=== PATIENT | female | born 1980 | race Caucasian/White ===

== ENCOUNTER 2020-10-16 15:11 | Outpatient (REF) | payer BC, SELFPAY ==
--- NOTE | 2020-10-16 15:29 | ECG_ITS ---
Test Reason : MAGNESIUM LEVEL Blood Pressure : / mmHG Vent. Rate : 085 BPM Atrial Rate : 085 BPM P-R Int : 162 ms QRS Dur : 078 ms QT Int : 380 ms P-R-T Axes : 031 -36 035 degrees QTc Int : 452 ms Normal sinus rhythm Left axis deviation Possible Anterior infarct , age undetermined ; could be from lead placement. Abnormal ECG No previous ECGs available Referred By: Kayla Erwin Electronically Signed By:MARY KAY JEREZ
[2020-10-16 17:11] LABS: Alanine Aminotransferase 11 U/L (0-31); Albumin Level 4.6 g/dL (3.5-5.0); Alkaline Phosphatase 60 U/L (39-117); Anion Gap 14 (12-20); Aspartate Amino Transferase 12 U/L (5-31); Bilirubin Total 0.3 mg/dL (0.0-1.0); Blood Urea Nitrogen 9 mg/dL (9-16); Carbon Dioxide 28 mmol/L (22-29); Chloride 103 mmol/L (96-108); Estimated Glomerular Filt Rate > 60; Glucose Random 78 mg/dL (60-115); Magnesium 2.1 mg/dL (1.6-2.6); Potassium 4.5 mmol/L (3.3-5.1); Sodium 140 mmol/L (135-145); Total Protein 6.9 g/dL (6.5-8.0)
== END 2020-10-16 15:12 | disposition home or self-care (01) ==
LOC: HO.LAB 15:11
PROVIDERS: PCP Family Medicine; Visit Provider Nurse Practitioner Psychiatric/Mental Health
DX: F33.2 Major depressive disorder, recurrent severe without psychotic features (principal)
CPT/HCPCS: 36415; 80053; 83735; 93005

== ENCOUNTER 2020-10-26 10:45 | Outpatient (RCR) | payer BC, SELFPAY ==
[2020-10-10 13:05] VITALS: BMI 25.4
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
--- NOTE | 2020-10-10 14:33 | PC.ADMIT ---
Patient is a 40 year old non-binary individual who goes by they/them pronouns. Patient reports increase in depression with passive SI and PTSD sxs. Patient is from their and moved into their own apartment in February 2020. Reports increased social anxiety and isolation and has not been able to work d/t symptoms thus is on a leave of absence from work. 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 Patient is alert and oriented x4. Calm and cooperative. Presents with depressed mood anxious affect. Reports passive SI, wishing that they would not wake up in the morning. Denied Plan or intent to kill themselve. Gave verbal permission to email them a copy of her safety plan. Patient has the crisis number if needed. Medications reconciled with patient and patient's pharmacy. Patient reports taking medications as prescribed.
--- NOTE | 2020-10-11 13:05 | PC.NURSE ---
Case opened in treatment team
--- NOTE | 2020-10-16 08:06 | PC.NURSE ---
I left a message with Corbin Guevara re need appointment for client
--- NOTE | 2020-10-16 10:46 | PC.NURSE ---
I spoke with Ammy from [facility] office. She took clients information and will call client directly to set up and appointment for medication management.
--- NOTE | 2020-10-16 14:37 | HO.PHPPROGNO ---
Subjective Subjective Date of Service: 10/16/20 Reason For Visit: CP-PTSD, Anxiety Medical Problems Affecting Mental Status: No Interim History: Azeb reports no real noticed improvement yet from recently increased Wellbutrin dose, which was increased on 10/10. We discussed several options, including waiting, or adding a low dose atypical antipsychotic. We discussed abilify, which she has taken in the past without any side effects. However, she does describe current symptoms of difficulty with sleep related to her anxiety, as well as reduced appetite related to the Wellbutrin. Seroquel was discussed, and she was in agreement to trying a low dose of 50mg at bedtime. It was explained that seroquel can be used as an adjunctive medication along with the antidepressants, and that it can also improve both sleep and appetite. No thoughts of self harm / SI. She would appreciate a note from this provider for short-term disability, stating that she is currently in program and is participating. a records request from her disability provider has already been forwarded to medical records dept. Plan includes obtaining a gen chem profile, along with magnesium level and ECG. It is noted that patient is also taking celexa 40mg daily, and these tests have been ordered to rule out any cardiac issues. Azeb does deny any history of cardiac issues / abnormalities. Script for seroquel 50mg at bedtime sent to pharmacy, and orders for above tests has also been sent. Patient is aware. Medication Compliance: Yes Side effects from medications: Yes (reduced appetite with Wellbutrin. ) Attending Groups: Yes Review of Systems Review of Systems Yes all other systems are reviewed and are negative Mental Status Exam Mental Status Exam Patient Appearance: Well Grooomed and Appropriate Patient Orientation: Person, Place, Time and Situation Level of Consciousness: Awake Patient Behavior: Appropriate and Cooperative Mood Description: Depressed and Anxious Affect Description: Depressed and Anxious Patient Cognition Impaired: No Ability to Follow Directions: Excellent Speech Pattern: Clear Memory Description: Intact Delusions: Not Present Thought Process: Intact Thought Content: positive for Intact Depressive Symptoms: Increased Anxiety, Insomnia and Changes in Appetite Judgement: Good Diagnostics Vital Signs (24Hr): Body Mass Index 25.4 Assessment & Plan Assessment & Plan (1) Major depressive disorder: Status: Acute Code(s): F32.9 - Major depressive disorder, single episode, unspecified Assessment and Plan: Patient reports no noticeable difference yet after 6 days with increased Wellbutrin dose. Also reports anxiety, difficulty sleeping, and reduced appetite. Requests note for short-term disability. PLAN: Provide note for short-term disability insurance provider. Obtain ECG, labs including chem profile and magnesium. Add seroquel 50mg at bedtime. Continue with current Wellbutrin dose. No other medication changes. Follow-up in one week, sooner if needed. Certification I certify that partial hospital treatment is medically necessary due to the symptoms and problems resulting from the patient's mental illness and the failure to treat the patient at the partial hospital level of care would likely result in the patient requiring inpatient psychiatric care which could not be prevented at a less intensive level of care. Greater than 50% of the session was spent on counseling and/or coordination of care Discharge Plan Discharge Attending provider: Olegario Lott Primary Care Provider: Chinyere Corrales Medications: New bupropion HCl [Wellbutrin SR] 200 mg tablet sustained-release 12 hr 200 mg PO BID 14 Days Qty: 28 RF: 0 quetiapine [Seroquel] 50 mg tablet 50 mg PO BEDTIME 7 Days Qty: 7 RF: 0 Discontinued bupropion HCl 150 mg Tablet Sustained-Release 12 Hr 150 mg PO BID RF: 0 No Action gabapentin 600 mg Tablet 600 mg PO BEDTIME RF: 0 citalopram [Celexa] 40 mg Tablet 40 mg PO DAILY RF: 0 spironolactone 25 mg Tablet 25 mg PO DAILY RF: 0 cholecalciferol (vitamin D3) [Vitamin D3] 125 mcg (5,000 unit) Tablet 125 mcg PO DAILY RF: 0 Zyrtec 10 mg Capsule 10 mg PO DAILY RF: 0 loratadine 10 mg Capsule 10 mg PO DAILY RF: 0 Referrals: Chinyere Corrales MD [Primary Care Provider] - 1 Week Stand Alone Forms: Patient Portal Discharge page Telehealth Telehealth Location of provider rendering services: practice address Location of patient: address on file Patient Identification confirmed using: Name, : Yes Telehealth method: video Patient verbally consented to treatment: Yes Patient verbally consented to billing insurance company: Yes Patient informed of any privacy concerns related to visit: Yes Time spent with patient (mins): 15
--- NOTE | 2020-10-16 15:14 | HO.PHPPROGNO ---
Subjective Subjective Date of Service: 10/16/20 Reason For Visit: CP-PTSD, Anxiety Diagnostics Vital Signs (24Hr): Body Mass Index 25.4 Assessment & Plan Certification I certify that partial hospital treatment is medically necessary due to the symptoms and problems resulting from the patient's mental illness and the failure to treat the patient at the partial hospital level of care would likely result in the patient requiring inpatient psychiatric care which could not be prevented at a less intensive level of care. Greater than 50% of the session was spent on counseling and/or coordination of care Discharge Plan Discharge Attending provider: Olegario Lott Primary Care Provider: Chinyere Corrales Medications: New bupropion HCl [Wellbutrin SR] 200 mg tablet sustained-release 12 hr 200 mg PO BID 14 Days Qty: 28 RF: 0 quetiapine [Seroquel] 50 mg tablet 50 mg PO BEDTIME 7 Days Qty: 7 RF: 0 Discontinued bupropion HCl 150 mg Tablet Sustained-Release 12 Hr 150 mg PO BID RF: 0 No Action gabapentin 600 mg Tablet 600 mg PO BEDTIME RF: 0 citalopram [Celexa] 40 mg Tablet 40 mg PO DAILY RF: 0 spironolactone 25 mg Tablet 25 mg PO DAILY RF: 0 cholecalciferol (vitamin D3) [Vitamin D3] 125 mcg (5,000 unit) Tablet 125 mcg PO DAILY RF: 0 Zyrtec 10 mg Capsule 10 mg PO DAILY RF: 0 loratadine 10 mg Capsule 10 mg PO DAILY RF: 0 Referrals: Chinyere Corrales MD [Primary Care Provider] - 1 Week Stand Alone Forms: Patient Portal Discharge page
--- NOTE | 2020-10-23 16:40 | HO.PHPPROGNO ---
Subjective Subjective Date of Service: 10/23/20 Reason For Visit: CP-PTSD, Anxiety Medical Problems Affecting Mental Status: No Interim History: Met with patient to discuss medications and recent tests. Lab values were within normal limits. Recent EKG showed QTC interval within normal limits. However, we did discuss that findings from EKG stated that she possibly could have had a cardiac event sometime in the past, or it could have simply been a misplacement of leads. She reported that something similar happened to her in the past, and that she had been sent for an ultrasound, but that nothing was ever discovered. This remote mortgage underwriter did discuss with her the importance of continued follow-up, and that she may want to discuss this with her new provider going forward, especially considering that she also takes citalopram 40 mg daily from a previous prescriber. Patient does have an appointment scheduled next Thursday with her new prescriber, and she says she will discuss this with her. Azeb reports that she feels improved overall, and that she believes the current medications are working well. She has been getting Wellbutrin SR 200 mg b.i.d. for 2 weeks now, and she feels that it is starting to take effect, with less depression and anxiety symptoms. She has been taking the Seroquel 50 mg at bedtime, and she reports that it is working to help improve her sleep, which in turn is helping lower her depression and anxiety symptoms. She denies any type of side effects from the medications. No SI, no safety concerns. Medication Compliance: Yes Side effects from medications: No Attending Groups: Yes Review of Systems Review of Systems Yes all other systems are reviewed and are negative Cardiovascular: Reports no additional cardiovascular complaints (Findings of recent EKG discussed. Denies any complaints / concerns. ) Mental Status Exam Mental Status Exam Patient Appearance: Well Grooomed and Appropriate Patient Orientation: Person, Place, Time and Situation Level of Consciousness: Awake, Appropriate and Alert Patient Behavior: Appropriate and Cooperative Mood Description: Appropriate, Depressed (reports some depression, but that it is lessening. ) and Anxious (some anxiety, says that it is lessening. ) Affect Description: Calm, Appropriate, Depressed (slight) and Anxious (slight) Patient Cognition Impaired: No Ability to Follow Directions: Excellent Speech Pattern: Clear Memory Description: Intact Hallucinations: None Thought Process: Intact Thought Content: positive for Intact Depressive Symptoms: Increased Anxiety (slight) and Difficulty Sleeping (some difficulty, but reports it is improving) Judgement: Good Judgement and Insight: Judgment and insight grossly intact. Diagnostics Vital Signs (24Hr): Body Mass Index 25.4 Assessment & Plan Assessment & Plan (1) Major depressive disorder: Status: Acute Code(s): F32.9 - Major depressive disorder, single episode, unspecified Assessment and Plan: She has been getting Wellbutrin SR 200 mg b.i.d. for 2 weeks now, and she feels that it is starting to take effect, with less depression and anxiety symptoms. She has been taking the Seroquel 50 mg at bedtime, and she reports that it is working to help improve her sleep, which in turn is helping lower her depression and anxiety symptoms. She denies any type of side effects from the medications. Refills for Wellbutrin SR 200 mg b.i.d., and Seroquel 50 mg at bedtime p.r.n. sent to pharmacy. Patient educated on: diagnosis, medication risk/benefits (discussed in depth risks and benefits of medications. ) and therapeutic strategies Reason for contiued partial hosp. stay Substantial Risk for: inability to function Certification I certify that partial hospital treatment is medically necessary due to the symptoms and problems resulting from the patient's mental illness and the failure to treat the patient at the partial hospital level of care would likely result in the patient requiring inpatient psychiatric care which could not be prevented at a less intensive level of care. Greater than 50% of the session was spent on counseling and/or coordination of care Discharge Plan Discharge Attending provider: Olegario Lott Primary Care Provider: Chinyere Corrales Medications: New bupropion HCl [Wellbutrin SR] 200 mg tablet sustained-release 12 hr 200 mg PO BID 7 Days Qty: 14 RF: 0 quetiapine [Seroquel] 50 mg tablet 50 mg PO BEDTIME 7 Days Qty: 7 RF: 0 Continued gabapentin 600 mg Tablet 600 mg PO BEDTIME RF: 0 Discontinued bupropion HCl 150 mg Tablet Sustained-Release 12 Hr 150 mg PO BID RF: 0 No Action citalopram [Celexa] 40 mg Tablet 40 mg PO DAILY RF: 0 spironolactone 25 mg Tablet 25 mg PO DAILY RF: 0 cholecalciferol (vitamin D3) [Vitamin D3] 125 mcg (5,000 unit) Tablet 125 mcg PO DAILY RF: 0 Zyrtec 10 mg Capsule 10 mg PO DAILY RF: 0 loratadine 10 mg Capsule 10 mg PO DAILY RF: 0 Referrals: Chinyere Corrales MD [Primary Care Provider] - 1 Week Stand Alone Forms: Patient Portal Discharge page Telehealth Telehealth Location of provider rendering services: practice address Location of patient: address on file Patient Identification confirmed using: Name, : Yes Telehealth method: video Patient verbally consented to treatment: Yes Patient verbally consented to billing insurance company: Yes Patient informed of any privacy concerns related to visit: Yes Time spent with patient (mins): 15
== END 2020-10-29 07:38 | disposition home or self-care (01) ==
LOC: HO.PHPA 10:45
PROVIDERS: PCP Family Medicine; Visit Provider Psychiatry & Neurology Psychiatry
DX: F32.9 Major depressive disorder, single episode, unspecified (principal); F41.9 Anxiety disorder, unspecified; Z79.899 Other long term (current) drug therapy
CPT/HCPCS: 90791; 90853